=== PATIENT | male | born 1990 | race Caucasian/White ===

== ENCOUNTER 2023-07-23 04:13 | Day surgery (SDC) | payer BC ==
[2023-07-18 19:01] VITALS: BMI 29.4
[2023-07-23] MEDS ORDERED: LIDOCAINE HCL 1%, 10 MG/ML (20ML VIAL) ONE (07:16)
[2023-07-23] MEDS ORDERED: BUPIVACAINE HCL/PF 0.5% (5MG/ML) 10 ML VIAL ONE (07:17)
[2023-07-23] MEDS ORDERED: SUCCINYLCHOLINE CHLORIDE 200 MG/10 ML SYRINGE ONE (07:50)
[2023-07-23] MEDS ORDERED: FENTANYL CITRATE/PF 50 MCG/ML VIAL ONE ×3 (07:50→09:06)
[2023-07-23] MEDS ORDERED: PROPOFOL 20 ML ONE ×3 (07:50→08:08)
[2023-07-23] MEDS ORDERED: MIDAZOLAM HCL 2 MG/2 ML SINGLE DOSE VIAL ONE (07:51)
[2023-07-23] MEDS: BUPIVACAINE HCL/PF 0.5% (5 MG/ML) 30 ML VIAL IJ ONE ×2 (08:22)
[2023-07-23] MEDS: LIDOCAINE HCL 1%, 10 MG/ML (50 mL VIAL) INF ONE ×2 (08:22)
[2023-07-23] MEDS ORDERED: ONDANSETRON 4 MG/2 ML VIAL IVPUSH PRN (08:59)
[2023-07-23] MEDS ORDERED: oxyCODONE HCL 5 MG TABLET PO PRN ×2 (08:59)
[2023-07-23] MEDS: LACTATED RINGERS SOLUTION 1,000 ML IV SCH (10:00)
[2023-07-23 10:55] VITALS: RESP 20
[2023-07-23 13:16] VITALS: BP 99/65; PULSE 70; TEMP 97.4
== END 2023-07-23 11:30 | disposition home or self-care (01) ==
LOC: JASU-SURG 04:13
PROVIDERS: ATTEND Orthopaedic Surgery
PROC: 0LB50ZZ Excision of Right Lower Arm and Wrist Tendon, Open Approach (ICD-10-PCS; 2023-07-23)
PROC: 0LN50ZZ Release Right Lower Arm and Wrist Tendon, Open Approach (ICD-10-PCS; principal; 2023-07-23 08:00)
DX: M65.4 Radial styloid tenosynovitis [de Quervain] (principal)
CPT/HCPCS: 88304-TC; 94760